=== PATIENT | female | born 1935 | race Caucasian/White ===

== ENCOUNTER 2016-12-12 18:28 | Emergency (ER) | payer MEDICARE, OTHER ==
[~2016-12-12] VITALS: Ht 162.6 cm; Wt 61.8 kg
[~2016-12-12 18:28] MED LIST: ALPR.25T PO; DICL100G13 TOP; ESTR0.5T PO; HYDR-2013 PO; HYDR12.5 PO; LEVO100T11 PO; METO200T32 PO; NF-NORETH5 PO; ONDN4T PO
--- OUTSIDE RECORDS SUMMARY | 2016-12-12 18:35 | XMS REPORT ---
Author Issa Rodríguez Organization Unknown Address [address] [facility] [place] [id number] Phone Care Team Providers Care Supervisor Stitching Department Name Role Phone Colton Fleming PP Unavailable Reason for Referral No Reason for Referral was given. Chief Complaint HCPA Text Box CC: Yearly [employer] check. History of Present Illness No HPI available. Problems Normal Routine History And Physical Senior Citizen (65-80) (V70.0); ( Active) Hypothyroidism (244.9); (Active) Sinus Bradycardia (427.89) ; (Active) Third Degree A-V Block (426.0); (Active) Seborrheic Keratosis (702.19); (Active) Medication Levothyroxine Sodium 100 MCG Oral Tablet; TAKE 1 TABLET DAILY.; Start Date: (Active)Fish Oil 1000 MG Oral Capsule; TAKE 1 CAPSULE DAILY.; Start Date : 12/26/2010 (Active)Calcium 600 MG Oral Tablet; Take 1 tablet twice daily; Start Date: 12/26/2010 (Active)ICaps Oral Capsule; TAKE 1 CAPSULE DAILY.; Start Date: 12/26/2010 (Active)Aspirin 81 MG Oral Tablet; TAKE 1 TABLET DAILY.; Start Date: 12/26/2010 (Active)Norethindrone Acetate 5 MG Oral Tablet; TAKE 1 TABLET DAILY.; Start Date: 12/18/2011 (Active)Losartan Potassium 50 MG Oral Tablet; TAKE 1 TABLET TWICE DAILY.; Start Date: 12/18/2011 (Active)Estradiol 1.5 mg Oral Tablet; Take one tablet 1 MG daily; Start Date: 12/18/2011 (Active) Hydrochlorothiazide 12.5 MG Oral Tablet; TAKE 1 TABLET DAILY.; Start Date: 12/17 (Active)Metoprolol Succinate ER 200 MG Oral Tablet Extended Release 24 Hour; TAKE 1 TABLET ONCE DAILY.; Start Date: 12/18/2011 (Active)Centrum Silver Oral Tablet; TAKE 1 TABLET DAILY.; Start Date: 12/18/2011 (Active) Allergies and Adverse Reactions Lisinopril TABS (Active) Past Medical History History of Skin Cancer (V10.83); (Resolved) Procedures Procedure Procedure Date Date Completed Status Pacemaker Placement - Transvenous Electrode Dual-chamber 11/26/2010 - Active Family History Paternal history of Pacemaker Placement (Active) Social History Never A Smoker (Active) Being A Social Drinker (Active) Uses Safety Equipment - Seatbelts (Active) Occupation: Retired (Active ) Marital History - Currently (Active) Caffeine Use ( Active) Vital Signs Date Description Test Result 04 Feb 2013 02:04 PM recorded by: Nupur Fernandez Weight 140 lb BP Systolic 114 mm[Hg] Height 65 in Heart Rate 72 /min BP Diastolic 70 mm[Hg] Body Surface Area Calculated 1.7 Body Mass Index Calculated 23.32 Advance Directives No Advance Directives available. Encounters Appointment 02/04/2013 RTNPT , Provider: Renetta Mccarthy, Status: Quang , Time: 10:45 AM 06/07/2013
--- OUTSIDE RECORDS SUMMARY | 2016-12-12 18:35 | XMS REPORT | Summary of Care ---
Author Issa Rodríguez M.D. Organization Unknown Address [address] [place], [place] [id number] Phone Unavailable Care Team Providers Care Connie Scratcher Name Role Phone Itzel Smith, Tunde Unavailable Unavailable Chrissie Jackson M.D. Unavailable Unavailable Omer Winter PP Unavailable Unavailable Unavailable Functional Status Functional Status Health Issues Name Dates Details Functional status health issues are not documented Status: Cognitive Status Health Issues Name Dates Details Cognitive status health issues are not documented Status: Problems Name Dates Details Hypothyroidism (244.9, E03.9) Status: Active Seborrheic dermatitis (690.10, L21.9) Status: Active Third degree AV block (426.0, I44.2) Status: Active Sinus bradycardia (427.89, R00.1) Status: Active Inflamed seborrheic keratosis (702.11, L82.0) Status: Active 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 Refills: 0 Issa Robbins M.D. Started 26-Dec-2010 ActiveFish Oil 1000 MG Oral Capsule TAKE 1 CAPSULE DAILY. Refills: 0 Issa Robbins M.D. Started 26-Dec-2010 ActiveCalcium 600 MG Oral Tablet Take 1 tablet twice daily Refills: 0 Issa Robbins M.D. Started 26-Dec-2010 ActiveICaps Oral Capsule TAKE 1 CAPSULE DAILY. Refills: 0 Issa Robbins M.D. Started 26-Dec-2010 ActiveAspirin 81 MG Oral Tablet TAKE 1 TABLET DAILY. Refills: 0 Issa Robbins M.D. Started 26-Dec-2010 ActiveLosartan Potassium 50 MG Oral Tablet TAKE 1 TABLET TWICE DAILY. Refills: 0 Issa Robbins M.D. Started 18-Dec-2011 ActiveHydrochlorothiazide 12.5 MG Oral Tablet TAKE 1 TABLET DAILY. Refills: 0 Issa Robbins M.D. Started 18-Dec-2011 ActiveMetoprolol Succinate ER 200 MG Oral Tablet Extended Release 24 Hour TAKE 1 TABLET ONCE DAILY. Refills: 0 Issa Robbins M.D. Started 18-Dec-2011 ActiveCentrum Silver Oral Tablet TAKE 1 TABLET DAILY. Refills: 0 Issa Robbins M.D. Started 18-Dec-2011 ActiveTriamcinolone Acetonide 0.1 % External Cream APPLY AND RUB IN A THIN FILM TO AFFECTED AREAS TWICE DAILY.(AM AND PM). Quantity: 1 Refills: 1 Fabio Jackson M.D. Started 26-Dec-2014 [id number] GM Tube Allergies and Adverse Reactions Name Dates Details Lisinopril TABS Status: Active Past Medical History Name Dates Details History of skin cancer (V10.83, Z85.828) Status: Resolved Procedures Procedure Dates Details History of Pacemaker Placement - Transvenous Electrode Dual-chamber Completed:26-Nov-2010 Procedures not documented Immunization Name Dates Details Immunizations not documented Family History Father Name Dates Details Family history of Pacemaker Placement Status: Active Social History Name Dates Details Smoking StatusNever smoker Vital Signs Date Test Result Details 25-Oct-2015 16:20 BP Systolic 116 mm[Hg] Status: BP Diastolic 70 mm[Hg] Status: Heart Rate 72 /min Status: Weight 143.125 lb Status: Body Mass Index Calculated 23.82 kg/m2 Status: Body Surface Area Calculated 1.72 m2 Status: Results Date Description Value Details Results not documented Plan of Care Planned Observations Name Dates Details Planned Goals not documented Goal Planned Encounters Appointment; Provider: Issa Robbins On 10-Oct-2016 14:00 Appointment; Provider: Tammie Almendarez On 08-Jul-2016 15:45 Appointment; Provider: Issa Robbins On 26-Jun-2011 11:15 Appointment; Provider: Issa Robbins On 08:15 Appointment; Provider: Issa Robbins On 19-Dec-2010 09:30 Appointment; Provider: Issa Robbins On 26-Nov-2010 07:30 Instructions Instructions not documented Encounters Appointment; Issa Robbins Encounter Diagnosis: Problem not documented On 25-Oct-2015 16:00 Appointment; Fabio Jackson Encounter Diagnosis: Problem not documented On 04-Jul-2015 15:45 Appointment; Issa Robbins Encounter Diagnosis: Problem not documented On 13:45 Appointment; Fabio Jackson Encounter Diagnosis: Problem not documented On 26-Dec-2014 14:30 Appointment; Fabio Jackson Encounter Diagnosis: Problem not documented On 28-Jun-2014 14:30 Appointment; Issa Robbins Encounter Diagnosis: Problem not documented On 14:45
[2016-12-12] MEDS ORDERED: OSEL75CA15 PO (19:05)
[2016-12-12] MEDS ORDERED: LSRT50T PO (19:05)
[2016-12-12] MEDS ORDERED: PRV20T PO (19:05)
[2016-12-12] MEDS ORDERED: PRD5T PO (19:05)
--- NOTE | 2016-12-12 19:41 | Diagnostic Imaging Report ---
INDICATION: Knee pain 3 views of the right knee show no fracture or dislocation. IMPRESSION: Negative right knee Dictated by: Dictated on workstation # [id number]
--- NOTE | 2016-12-12 20:21 | Diagnostic Imaging Report ---
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 There is a hallux is deformity. There is no acute fracture or dislocation. IMPRESSION: Hallux valgus deformity. 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 No acute abnormality seen. Dictated by: Dictated on workstation # [id number]
[2016-12-12] MEDS ORDERED: HYDR-3702 PO (20:38)
[2016-12-12] MEDS ORDERED: CRUT1EAC7 MC (20:38)
[2016-12-12] MEDS ORDERED: ED- HYDROcodone/ACETAMINOPHEN 5MG/325MG (NORCO) 6 TABLETS/BTL PO ONE (20:40)
[2016-12-12 21:08] VITALS: BP 94/59
== END 2016-12-12 20:52 | disposition home or self-care (01) ==
LOC: EDUNIT# 18:28 → ED 18:31
DX: S83.91XA Sprain of unspecified site of right knee, initial encounter (principal); X50.9XXA Other and unspecified overexertion or strenuous movements or postures, initial encounter; Y93.H2 Activity, gardening and landscaping; Y92.007 Garden or yard of unspecified non-institutional (private) residence as the place of occurrence of the external cause
CPT/HCPCS: 73562; 73630; 99283; A9270; L1830